=== PATIENT | male | born 1950 | race African-American/Black ===

== ENCOUNTER 2018-06-18 14:48 | Inpatient (IN) | payer OTHER ==
[2018-06-18] VITALS (18 sets, daily range): BP systolic 84–159; BP diastolic 17–80
[~2018-06-18] VITALS: Ht 175.3 cm; Wt 166.6 kg
[2018-06-18 15:51] LABS: BE(vivo) -4.1 mmol/L (-2 to +3); HCO3 18.3 mmol/L (22.0-26.0); PCO2 23.1 mmHg (35.0-45.0); PO2 131.6 mmHg (80.0-100.0); pH 7.516 (7.360-7.450)
[2018-06-18 15:53] LABS: MCH 28.5 pg (26.0-34.0); MCHC 31.9 g/dL (28.0-37.0); MCV 89.1 fL (80.0-100.0); RBC 2.09 mil/uL (4.50-6.00); RDW 15.5 % (10.5-14.5); WBC 11.8 thou/uL (4.0-11.0)
[2018-06-18 15:55] LABS: HEMATOCRIT 18.6 % (42.0-52.0); HEMOGLOBIN 5.9 gm/dL (14.0-18.0)
[2018-06-18 15:59] LABS: ANION GAP 14 mmol/L (7-16); BUN 64 mg/dL (7-18); CALCIUM 8.8 mg/dL (8.5-10.1); CHLORIDE 106 mmol/L (98-107); CO2 20 mmol/L (21-32); CREATININE 1.9 mg/dL (0.7-1.3); GLUCOSE 262 mg/dL (74-106); POTASSIUM 4.2 mmol/L (3.5-5.1); SODIUM 140 mmol/L (136-145)
[2018-06-18 16:05] LABS: APTT 30.4 Seconds (24.5-32.8); INR 1.1; PROTIME 11.8 Seconds (9.3-11.4)
[2018-06-18 16:07] LABS: TROPONIN-I <0.06 ng/mL (<0.06)
[2018-06-18] MEDS ORDERED: NAPROSYN500 MG PO (19:06)
[2018-06-18] MEDS ORDERED: SENNA8.6 MG PO (19:07)
[2018-06-18] MEDS ORDERED: LASIX 40 MG TAB40 M2 PO (19:07)
[2018-06-18] MEDS ORDERED: SPIRONOLACTONE25 M1 PO (19:07)
[2018-06-18] MEDS ORDERED: BISAC-EVAC10 MG RECTAL (19:07)
[2018-06-18] MEDS ORDERED: MIRALAX17 GM PO (19:07)
[2018-06-18] MEDS ORDERED: AMLODIPINE BESY10 MG PO (19:08)
[2018-06-18] MEDS ORDERED: UNICOMPLEX M TA1 TA1 PO (19:08)
[2018-06-18] MEDS ORDERED: TOPROL XL100 MG PO (19:08)
[2018-06-18] MEDS ORDERED: TYLENOL EXTRA500 MG PO (19:08)
[2018-06-18] MEDS ORDERED: LOSARTAN POTAS100 MG PO (19:09)
[2018-06-18 22:18] LABS: HEMATOCRIT 22.4 % (42.0-52.0); HEMOGLOBIN 7.4 gm/dL (14.0-18.0)
[2018-06-19] VITALS (42 sets, daily range): BP systolic 102–150; BP diastolic 27–82
[2018-06-19 02:24] LABS: URINE BILIRUBIN NEGATIVE (Negative); URINE BLOOD NEGATIVE (Negative); URINE CLARITY CLEAR; URINE COLOR YELLOW; URINE GLUCOSE-RANDOM* NEGATIVE (Negative); URINE KETONES NEGATIVE (Negative); URINE NITRITE-REFLEX NEGATIVE (Negative); URINE PROTEIN (DIPSTICK) NEGATIVE (Negative); URINE UROBILINOGEN 0.2 E.U./dl (0.2-1.0)
[2018-06-19 02:44] LABS: URINE LEUKOCYTES-REFLEX 1+ (Negative)
[2018-06-19 03:00] LABS: HEMATOCRIT 20.9 % (42.0-52.0); HEMOGLOBIN 6.9 gm/dL (14.0-18.0)
[2018-06-19 03:10] LABS: BACTERIA-REFLEX 1-9 Few /HPF (None Seen); CASTS None Seen /LPF (None Seen); CRYSTALS None Seen /LPF (None Seen); MUCUS None Seen strn/LPF (None Seen); SQUAMOUS 0-3 Few /LPF (0-3); URINE RBC 3-10 Few /HPF (0-2); URINE WBC-REFLEX 0-5 Rare /HPF (0-5)
--- NOTE | 2018-06-19 03:33 | NUR ---
0240: NOTIFIED DR. DOWNS OF PT HAVING X2 MOD-LARGE BLOODY BM'S, BLACK W/ CLOTS/JELLY APPEARING. CLARIFIED GI CONSULT - NO OFFICIAL ORDER, PT WAS SEEN IN ER BY GI PROFESSOR OF BIOLOGICAL SCIENCES AND DR. TOURE. ORDER RECEIVED FOR ROUTINE GI CONSULT SINCE PT WAS SEEN IN ER BY THEM LAST EVENING AND STAT H/H CHECK. 0325: NOTIFIED DR. DOWNS WITH H/H RESULTS, ORDER RECEIVED TO GIVE 1 UNIT RBC. CLARIFIED PROTONIX GTT W/ PHYSICIAN - ONE TIME ORDER ENTERED IN ER, AND ORDER TO START PROTONIX IV BID IN AM - NO CHANGES TO THIS ORDER. CONTINUE Q8H H/H'S.
--- NOTE | 2018-06-19 03:55 | NUR ---
ADMISSION NOTE 1900: RECEIVED REPORT FROM [facility]. 2004: PT ARRIVED TO ROOM 242, TRANSFERRED TO ICU BED PER ORANGE SLIDE SHEET WITHOUT COMPLICATIONS, CONNECTED TO MONITORS PER ICU STANDARDS. ST ON TELE HR 115-130'S, ON ROOM AIR, NO DISTRESS NOTED, PT IS A/O X4, ESCAMILLA/FOLLOW COMMANDS. SIGNIFICANT LYMPHEDEMA NOTED IN BILATERAL LOWER EXTREMITIES. BOWEL SOUNDS ACTIVE, NO BM NOTED - PT DID HAVE BLOODY STOOL IN ED. PT IS CURRENTLT STATUS POST 2 UNITS RBC INFUSED. PT VOIDED WITHOUT DIFFICULTY. VERY DRY/FLAKY SKIN NOTED BLE. PT HAD NUSRAT WRAP AROUND BLE W/ STOOL ON DRESSING, REMOVED, SOCKS REPLACED AND ELEVATED BLE ON PILLOWS. COMPLETE ASSESSMENT PER DOCUMENTATION. VSS. ALL ORDERS ACTIVATED AND POC EXPLAINED TO PT. PROTONIX GTT INFUSING RIGHT AC IV - IVF'S ORDERED AND STARTED. LEFT EJ LEAKING - REMOVED IV, TIP INTACT, PRESSURE HELD, NO ACTIVE BLEEDING NOTED.
--- NOTE | 2018-06-19 05:48 | NUR ---
ASSESSMENTS PER DOCUMENTATION, VSS, NO DISTRESS NOTED. PT HAD 3-4 BM'S FROM 2330 UNTIL 4AM, BLACK/MAROON IN COLOR W/ JELLY/CLOT CONSISTENCY. PT DENIES PAIN, IS ASYMPOMATIC, A/O X4. SOFT BP'S AT TIMES FRANDY DIASTOLIC. SERIAL H/H'S CONTINUE, 6AM DRAW ON HOLD D/T PRBC'S INFUSING. 1 UNIT OF BLOOD STARTED AT 0508 PER PROTOCOL, VITAL SIGNS REMAIN STABLE DURING START OF INFUSION, NO S/S REACTION NOTED. DR. DOWNS UPDATED THROUGHOUT THE NIGHT. NO DISTRESS NOTED, PT REMAINS ON ROOM AIR, RESPIRATIONS EVEN/UNLABORED. PT IS NPO THIS MORNING IN ANTICIPATION OF EGD W/ GI. PT VOIDED ADEQUATE AMOUNT OF URINE OVERNIGHT - 525ML, DARK YELLOW. SKIN DRY/INTACT. UA SENT TO LAB. PROTONIX GTT COMPLETED - WILL GIVE IVP THIS AM.
--- NOTE | 2018-06-19 08:15 | EKG ---
[address] [employer] [place] [address] ELECTROCARDIOGRAM REPORT Name: TANNER SHIELDS Room #: 242-P ADM IN M.R.#: [id number] ������������������ Admission: 06/18/18 ������������������ Attend Phys: Yasir Hernandez MD Discharge: ������������������ Date of : 48 Report #: [id number] ����������������������������������������������������������������� [id number] THIS REPORT FOR: //name// [facility] ED Test Date: 2018-06-18 Test Time: 15:05:25 Pat Name: TANNER SHIELDS Department: Room: 242 Gender: M Radio Personality: TYRONE : 1950 Requested By: Gabriel Lobo Order Number: [id number] MD: Mark Sheikh Measurements Intervals [place] Rate: 81 P: 58 DE: 139 QRS: 35 QRSD: 89 T: 88 QT: 387 QTc: 450 Interpretive Statements Sinus rhythm No significant abnormality No previous ECG available for comparison Electronically Signed On 06-19-2018 8:15:10 MANAGER BUDGET by Mark Sheikh [email or web address] ��������������������������������������������� <ELECTRONICALLY SIGNED> ���������������������������������������� By: Mark Sheikh MD, [facility] ��������������������������������������������� 06/19/18 0815 [id number] Mark Sheikh MD, FACC /EPI
[2018-06-19 09:12] LABS: HEMATOCRIT 23.6 % (42.0-52.0)
--- NOTE | 2018-06-19 16:45 | NUR ---
FAXED CLINICAL UPDATE TO CM SPOKE WITH CHARO AND SHE RECEIVED UPDATE AND WILL FOLLOW. DCP TO FOLLOW.
[2018-06-19 22:52] LABS: HEMATOCRIT 21.2 % (42.0-52.0); HEMOGLOBIN 7.2 gm/dL (14.0-18.0)
[2018-06-20] VITALS (34 sets, daily range): BP systolic 113–194; BP diastolic 47–85
--- NOTE | 2018-06-20 04:15 | NUR ---
PT HAD NO STOOL LAST NIGHT, NO S/S OF BLEEDING, PROTONIX DRIP COMPLETED LAST NIGHT, IV PUSH SCHEDULED THIS AM, LAST HGB LAST NIGHT 7.2, PT NPO PER ORDERS, BLOOD SUGAR IN NORMAL RANGE, IVF INFUSING, URINE OUTPUT ADEQUATE, VOIDING FREQUENTLY PER URINAL, X2 EPISODES OF STRESS URINE INCONTINENCE, SCD STARTED LAST NIGHT PER ORDERS. PT SLOWLY GAINING STRENGTH, HELPS WITH TURNS IN BED ABLE TO ESCAMILLA.
--- NOTE | 2018-06-20 10:42 | NUR ---
Case opened to follow for dc planning. Pt is a readmission from SNF at [facility]. Pt is currently in the ICU with a GIB. Likely dc out of the ICU today. Enrollment Management Coordinator visited with the pt at bedside and he is a&ox4. He is planning to return to rehab at [facility] when medically stable. He states that he was doing good with his rehab and getting ready to go home soon. Dc process planner to keep admissions at [facility] updated. They can accept him when medically stable. Will follow.
[2018-06-20 12:30] LABS: HEMATOCRIT 20.3 % (42.0-52.0); HEMOGLOBIN 6.9 gm/dL (14.0-18.0)
--- NOTE | 2018-06-20 17:53 | NUR ---
PT MET GOAL, INCREASED ACTIVITY THROUGHOUT DAY. UP IN THE CHAIR WITH PT [id number]. STAND BY ASSISTANCE X1 WITH WALKER. PT TOLERATED GETTING BACK BED. EXPRESSED CONCERNS REGARDING BLACK STOOL. PT STATED, "I'M WORRIED, IT MAKES ME NERVOUS" EDUCATED PT ON INCREASED DIET TO CLEAR LIQUIDS WILL CAUSE THE OLD STOOL TO MOVE THROUGH THE GI TRACK AND HE MAY SEE "OLD BLOOD" FOR SEVERAL DAYS. REVIEWED PT LABS AND VITAL SIGNS WITH HIM AND REASSURED PT THAT HE IS BEING CLOSELY MONITORED IN THE ICU.
[2018-06-21] VITALS (42 sets, daily range): BP systolic 78–178; BP diastolic 39–92
[2018-06-21 04:40] LABS: MCH 29.8 pg (26.0-34.0); RDW 15.9 % (10.5-14.5)
[2018-06-21 04:42] LABS: MCHC 33.5 g/dL (28.0-37.0); MCV 88.8 fL (80.0-100.0); RBC 2.16 mil/uL (4.50-6.00); WBC 9.5 thou/uL (4.0-11.0)
[2018-06-21 04:44] LABS: CALCIUM 8.7 mg/dL (8.5-10.1); CREATININE 1.1 mg/dL (0.7-1.3); POTASSIUM 3.8 mmol/L (3.5-5.1)
[2018-06-21 04:49] LABS: % SATURATION 75 % (20-39); IRON 191 ug/dL (65-175); TIBC 255 ug/dL (250-450)
[2018-06-21 05:02] LABS: HEMOGLOBIN 6.4 gm/dL (14.0-18.0)
[2018-06-21 05:03] LABS: HEMATOCRIT 19.2 % (42.0-52.0)
--- NOTE | 2018-06-21 07:56 | NUR ---
ASSUMED CARE OF PT AT 1900. PT ALERT AND ORIETED X4. NO SIGNS OF ACTIVELY BLEEDING NOTED. HGB THIS AM 6.4. ORDERS RECEIVED FOR TRANSFUSION PER DR DOWNS. SR ON THE MONITOR. TACHYCARDIC WITH ACTIVITY. GOOD UO.
--- NOTE | 2018-06-21 09:46 | NUR ---
Assess due to notification of high BMI 53.7=extreme class III obesity. Pt admitted due to GIB due to large duodenal ulcer. Has been npo/clear liquids x 3 days. Hgb dropped today and pt requires transfusion. GI following. ICU rounds-RN states pt drinking clear liquids with tolerance. Await for timely ability to advance diet. Low nutrition risk at this time
[2018-06-21 11:29] LABS: HEMATOCRIT 21.9 % (42.0-52.0); HEMOGLOBIN 7.4 gm/dL (14.0-18.0); MCHC 33.7 g/dL (28.0-37.0); RBC 2.46 mil/uL (4.50-6.00); RDW 15.6 % (10.5-14.5); WBC 10.1 thou/uL (4.0-11.0)
--- NOTE | 2018-06-21 17:18 | NUR ---
PT IS ALERT AND ORIENTED X4. LUNGS ARE CLEAR TO DIMINISHED. ON ROOM AIR. UP TO CHAIR TODAY. NSR ON THE BROKE BEATER MACHINE OPERATOR. O2 SATURATION IS 100 PERCENT. BOWEL SOUNDS POSITIVE. PASSING GAS . NO BOWEL MOVEMENT. VOIDS PER URINAL AND NEEDS ASSISTANCE. AND HAS DRIBBLING WITH VOIDS. BATH SPONGE GIVEN . EATING A FULL LIQUID DIET. CALL LIGHT WITHIN REACH IF NEEDS ASSISTANCE.
[2018-06-21 18:10] LABS: HEMATOCRIT 24.7 % (42.0-52.0); HEMOGLOBIN 8.4 gm/dL (14.0-18.0)
[2018-06-22] VITALS (25 sets, daily range): BP systolic 111–194; BP diastolic 51–79
--- NOTE | 2018-06-22 05:51 | NUR ---
ASSUMED CARE OF PT AT 1900. PT ALERT AND ORIENTED X4. DENIES ANY PAIN. PT ABLE TO ASSIST WITH TURNS. SR ON THE MONITOR. TACHYCARDIC WITH ACTIVITY. VSS. X1 MEDIUM BLACK TARRY STOOL. GOOD UO. SKIN INTACT. WILL CONTINUE TO MONITOR PT.
[2018-06-22 05:55] LABS: HEMATOCRIT 20.5 % (42.0-52.0)
[2018-06-22 06:05] LABS: CALCIUM 8.6 mg/dL (8.5-10.1); POTASSIUM 3.4 mmol/L (3.5-5.1)
[2018-06-22 10:48] LABS: HEMATOCRIT 21.9 % (42.0-52.0); HEMOGLOBIN 7.3 gm/dL (14.0-18.0)
--- NOTE | 2018-06-22 13:30 | NUR ---
CLINICAL INFO REVIEWED. WILL REMAIN IN ICU PER DR. DOWNS'S NOTE AND NO W/E DC PLANNED. PT WILL RETURN TO SKILLED REHAB AT [facility] WHEN MEDICALLY READY. UPDATE TO [place] IN ADMISSIONS AT [facility].
--- NOTE | 2018-06-22 19:15 | NUR ---
Pt alert and oriented throughout the shift. Sinus rhythm when at rest. Sinus tachycardia with exertion. Heart rate up to 140's when ambulating. Repeat hemoglobin 7.3 this morning. Next HH at 2200. Pt had one loose stool-blackish with maroon tint. No clots. Diet was advanced to regular today. Respirations nonlabored. Lungs clear. Voids per urinal in small amts (50-150 ml). Total urine output adequate at 635 ml. Pt has denied pain. Pt out of bed to chair with assist of PT. Pt able to shave himself today. Report given to RN assuming care. Order present for transfer out of ICU if bed is needed.
[2018-06-22 22:02] LABS: HEMOGLOBIN 7.8 gm/dL (14.0-18.0)
[2018-06-23] VITALS (17 sets, daily range): BP systolic 108–161; BP diastolic 50–87
[2018-06-23 05:24] LABS: CALCIUM 8.8 mg/dL (8.5-10.1); CREATININE 1.1 mg/dL (0.7-1.3); POTASSIUM 3.7 mmol/L (3.5-5.1)
--- NOTE | 2018-06-23 07:27 | NUR ---
ASSUMED CARE OF PT AT 1900. PT ALERT AND ORIENTED X4. DENIES ANY PAIN. ABLE TO AMBULATE TO CHAIR WITH X2 ASSISTANCE, GAIT BELT, AND WALKER. PT SR AT REST DOES BECOME TACHYCARDIC WITH ACTIVITY. X1 SMEAR OF BLACK TARRY STOOL. HGB AT 2200 7.8. VSS. REMAINS ON RA. PT MAKING PROGRESS TOWARDS PLAN OF CARE.
[2018-06-23 15:12] LABS: HEMATOCRIT 23.3 % (42.0-52.0); HEMOGLOBIN 7.8 gm/dL (14.0-18.0)
--- NOTE | 2018-06-23 15:47 | NUR ---
PT UP TO CHAIR FOR APPROX 5 HRS TODAY. INCONTINENT OF BLACK TARRY STOOL X1. NSR ON SSAS DEVELOPER. O2 SAT STABLE ON ROOM AIR. ORDER TO TRANSFER TO TELE. REPORT GIVEN TO LUCRETIA Montoya RN.
--- NOTE | 2018-06-23 17:13 | NUR ---
ADMITTED PATIENT TO UNIT AT THIS TIME. ORIENTED TO ROOM, BED CONTROLS AND TV. HE PREFERS TO SIT ON THE CHAIR. WILL CONT WITH PLAN OF CARE.
--- NOTE | 2018-06-24 00:42 | NUR ---
Pt report received, assumed care of pt at 7460 06/23/18.
--- NOTE | 2018-06-24 01:40 | NUR ---
ASSUMED CARE AT 1900, INITIAL ASSESSMENT COMPLETED. PT DENIES PAIN, NAUSEA, OR SOB. ASSISTED x2 TO GET UP FROM CHAIR AND MOVE TO BED. HAD MODERATE AMOUNT OF INCONTINENT THIN BLACK, TARRY STOOL; SENT A SPECIMEN FOR H. PYLORI TEST. HAS BEEN ST, HR LOW 100'S ON TELE. NO OTHER CONCERNS, TRANSFERRED CARE TO SECOND RN AT 2345, PT IN STABLE CONDITION.
[2018-06-24 05:10] VITALS: BP 147/81
[2018-06-24 06:24] LABS: HEMATOCRIT 21.3 % (42.0-52.0); HEMOGLOBIN 7.2 gm/dL (14.0-18.0)
--- NOTE | 2018-06-24 07:02 | NUR ---
Pt A/O x 4. VSS. SR. Denies pain or any other discomfort. Fall precautions maintained. Pt instructed to call for assistance. Call light within reach.
[2018-06-24 07:22] VITALS: BP 136/75
[2018-06-24 11:21] VITALS: BP 137/79
--- NOTE | 2018-06-24 15:35 | NUR ---
ASSUMED PATIENT CARE AT 0715. A&OX4. NO COMPLAINTS OF PAIN. MOST LIKELY DISCHARGE BACK TO REHAB TOMORROW. PATIENT WAS UP WALKING WITH A WALKER AT REHAB. BEFORE REHAB PATIENT WAS USING A CANE. PATIENT WAS ALSO GETTING LYMPHEDEMA WRAPS AT HOME AND FACILITY BUT HAS NOT BEEN GETTING THEM SINCE ADMISSION. BLE VERY LARGE. PATIENT WORKING TOWARD DISHCARGE GOALS.
[2018-06-24 16:36] VITALS: BP 128/79
[2018-06-24 19:07] VITALS: BP 159/73
--- NOTE | 2018-06-25 04:12 | NUR ---
PT MAKING PROGRESS TOWARDS GOALS. NO REPORTED BLEEDING OVERNIGHT, NO BM OVERNIGHT. DENIES SOA OR ANY COMPLAINTS. CONTINUE TO MONITOR.
[2018-06-25 04:48] VITALS: BP 141/69
[2018-06-25 05:21] LABS: HEMATOCRIT 21.5 % (42.0-52.0); HEMOGLOBIN 7.1 gm/dL (14.0-18.0)
[2018-06-25 05:33] LABS: CALCIUM 8.6 mg/dL (8.5-10.1); CREATININE 1.1 mg/dL (0.7-1.3); POTASSIUM 3.5 mmol/L (3.5-5.1)
[2018-06-25 07:32] VITALS: BP 140/76
[2018-06-25 11:24] VITALS: BP 149/66
--- NOTE | 2018-06-25 11:24 | NUR ---
dp sent updates on patient to [facility] Deidra, dp also left Anand/admissions dept at [facility] a messsage letting her know updates were sent. Patient may possibly be ready for dc today, however there are no orders in yet. Patient will need bariatric wc van for transportation, no oxygen. DP to follow up.
--- NOTE | 2018-06-25 14:17 | NUR ---
ASSUMED PATIENT CARE AT 0715. A&OX4. NO COMPLAINTS OF PAIN. NEEDS HELP REPOSITIONING IN THE BED TODAY. PATIENT UNABLE TO STAND WITH THERAPY DUE TO RIGHT KNEE PAIN. PATIENT WAS ABLE TO GET TO CHAIR YESTERDAY. PATIENT HAD A LARGE BLACK STOOL YESTERDAY. HGB 7.1 TODAY. GI ORDERED A ONE TIME DOSE OF MAG CITRATE, NPO AT 0000, AND HGB TOMORROW. GI MAY SCOPE AGAIN TOMORROW, SEE GI NOTE. PATIENT AGREEABLE WITH POC. WORKING TOWARDS GOALS.
--- NOTE | 2018-06-25 14:52 | NUR ---
SW reviewed chart and spoke with nursing. Pt was transferred to from ICU. Pt remains on Protonix IV BID. Per GI, will continue to monitor hemoglobin. Pt may need to have an EGD. land planner faxed clinical updates to [facility] for review. Plan is for pt to return to [facility] when medically stable. [facility] is following to assist as needed with discharge planning.
[2018-06-25 15:08] VITALS: BP 132/65
[2018-06-25 19:45] VITALS: BP 155/76
[2018-06-26 04:00] VITALS: BP 134/75
--- NOTE | 2018-06-26 05:11 | NUR ---
3 large BM since mag citrate given by previous shift. used bedpan, did have episode of incontinence. first stool 1/2 black, 1/2 brown. next two BM were brown, no obvious blood noted in stool. using urinal to void, adequate amount. bilateral lymphedema wraps ordered, not performed yet. wound care notified. denied pain in right knee.
[2018-06-26 06:04] LABS: HEMOGLOBIN 7.2 gm/dL (14.0-18.0)
[2018-06-26 07:39] VITALS: BP 136/75
[2018-06-26 11:48] VITALS: BP 173/91
--- NOTE | 2018-06-26 11:56 | NUR ---
ASSUMED PATIENT CARE AT 0715. A&OX4. COMPLAINTS OF RIGHT KNEE PAIN. P.T. ASKED IF PATIENT COULD HAVE WEDGES ON THE OUTSIDE OF LEGS WHILE IN BED TO HELP KEEP KNEES FROM TURNING OUTWARDS. HGB THIS AM 7.2. BOWEL MOVEMENTS HAVE BEEN BROWN IN COLOR. PATIENT HAVING MULTIPLE BOWEL MOVEMENTS OVERNIGHT AND TODAY. PATIENT UNABLE TO STAND WITH THERAPY. PHYSICAL THERAPY INSTRUCTED THE PATIENT ON HOW IMPORTANT IT IS TO GET OUT OF BED AND MOVE. PATIENT STILL REFUSED TO STAND. BATH GIVEN BY O.T. LYMPHEDEMA WRAPS STARTED TODAY. HOPEFULLY WRAPS HELP WITH LEG AND KNEE PAIN. POSSIBLE DC BACK TO REHAB. ABLE TO MAKE NEEDS KNOWN.
--- NOTE | 2018-06-26 14:41 | NUR ---
SW reviewed chart and spoke with nursing and attending physician. Pt is progressing towards goals for discharge. Hgb is stable. Pt's IV protonix has been changed to PO starting this evening. SW updated admissions at [facility]. Plan is for pt to d/c back to [facility] when medically stable. SW is following to assist as needed with discharge planning.
[2018-06-26 15:28] VITALS: BP 145/72
[2018-06-26 19:58] VITALS: BP 156/67
[2018-06-26 20:15] VITALS: BP 114/54
[2018-06-27 04:33] VITALS: BP 137/68
--- NOTE | 2018-06-27 05:43 | NUR ---
PT MAKING PROGRESS TOWARDS GOALS. NO REPORTS OF BM OVERNIGHT. ONLY C/O MINIMAL RIGHT KNEE PAIN. ENCOURAGED TO ASK FOR PAIN MEDICATION FOR HIS RIGHT KNEE APPROXIMATELY AN HOUR PRIOR TO WORKING WITH PHYSICAL THERAPY.
[2018-06-27 07:25] VITALS: BP 143/76
[2018-06-27] MEDS ORDERED: CLARITHROMYCIN250 M2 PO (10:07)
[2018-06-27] MEDS ORDERED: AMOXICILLIN 50500 M1 PO (10:07)
[2018-06-27] MEDS ORDERED: CIPRO500 MG PO (10:08)
[2018-06-27] MEDS ORDERED: ACETAMINOPHEN-1 EAC1 PO (10:10)
[2018-06-27] MEDS ORDERED: PANTOPRAZOLE SO40 M1 PO (10:10)
[2018-06-27 10:12] LABS: HEMATOCRIT 21.4 % (42.0-52.0); HEMOGLOBIN 7.5 gm/dL (14.0-18.0); MCH 30.5 pg (26.0-34.0); MCV 87.1 fL (80.0-100.0); RBC 2.46 mil/uL (4.50-6.00); RDW 15.8 % (10.5-14.5); WBC 9.8 thou/uL (4.0-11.0)
[2018-06-27] MEDS ORDERED: METOPROLOL SUCC50 MG PO (10:13)
[2018-06-27 11:57] VITALS: BP 119/65
--- NOTE | 2018-06-27 12:28 | NUR ---
DISCHARGE NOTE: SW notified by nursing that pt has discharge orders to return to [facility] today. SW met with pt at bedside to notify of discharge. Pt is aware and agreeable with discharge plan. Pt will need stretcher van transportation. Chart copy requested. event planner to fax discharge orders/summary and arrange transportation. SW is available to assist should needs arise.
--- NOTE | 2018-06-27 14:39 | NUR ---
PT. DISCHARGING TODAY BACK TO [facility]. FAXED DC ORDERS/SUMMARY TO FACILITY SPOKE WITH CHARO IN ADM. SHE RECEIVED DC ORDERS AND ARRANGED TRANSPORTATION VIA STRETCHER VAN FOR 1700 TODAY. LEFT MSG WITH FAMILY (OLE) OF DISCHARGE AND TIME OF TRANSPORT. UNIT NOTIFIED AND CHART COPY PER US. RN TO CALL REPORT TO [phone].
--- NOTE | 2018-06-27 14:48 | NUR ---
Assumed care of patient at 0700. Vitals have been stable. Patient alert and oriented x4, pleasant. Only complaints of pain are to right knee. Pain is very minimal; mainly with activity. Pre-medicated with Tylenol #3 before working with therapy. Patient was able to work with both PT and OT this afternoon. Able to stand at edge of bed, but therapy reports was max assist of 2 people to stand with walker. Is not much able to take steps. Fall precautions in place. Voiding per urinal. Bilateral lymphedema wraps to legs. No BM this shift. No signs of bleeding. Discharge orders received. To DC back to [facility] this evening via stretcher van. Will continue to monitor until discharge.
== END 2018-06-27 18:18 | DRG 378 ==
LOC: ER 14:48 → EROBS 16:43 → ICU 16:43 → 3W 06-23 17:08
PROVIDERS: Emergency Medicine; Internal Medicine; Internal Medicine Gastroenterology; Nurse Practitioner; Specialist; ADMIT Internal Medicine
PROC: 30233N1 Transfusion of Nonautologous Red Blood Cells into Peripheral Vein, Percutaneous Approach (ICD-10-PCS; principal; 2018-06-18)
PROC: 0W3P8ZZ Control Bleeding in Gastrointestinal Tract, Via Natural or Artificial Opening Endoscopic (ICD-10-PCS; 2018-06-19)
DX: K26.4 Chronic or unspecified duodenal ulcer with hemorrhage (principal); D62 Acute posthemorrhagic anemia; N17.9 Acute kidney failure, unspecified; R57.9 Shock, unspecified; N39.0 Urinary tract infection, site not specified; Z68.43 Body mass index [BMI] 50.0-59.9, adult; E78.5 Hyperlipidemia, unspecified; M10.9 Gout, unspecified; M17.0 Bilateral primary osteoarthritis of knee; I89.0 Lymphedema, not elsewhere classified; E66.01 Morbid (severe) obesity due to excess calories; E87.6 Hypokalemia; K59.00 Constipation, unspecified; B96.89 Other specified bacterial agents as the cause of diseases classified elsewhere; B96.81 Helicobacter pylori [H. pylori] as the cause of diseases classified elsewhere; I10 Essential (primary) hypertension; Z28.21 Immunization not carried out because of patient refusal; Z79.1 Long term (current) use of non-steroidal anti-inflammatories (NSAID); Z79.899 Other long term (current) drug therapy; Z88.5 Allergy status to narcotic agent; Z88.8 Allergy status to other drugs, medicaments and biological substances
CPT/HCPCS: 10078; 10879; 62110; 62900; 70005

== ENCOUNTER → 2018-09-03 | Outpatient (CLI) | payer OTHER ==
[~2018-09-03] VITALS: Ht 175.3 cm; Wt 158.8 kg
[~2018-09-03] MED LIST: ACETAMINOPHEN-1 EAC1 PO; ALLOPURINOL 10100 M1 PO; AMLODIPINE BESY10 MG PO; AMOXICILLIN 50500 M1 PO; BISAC-EVAC10 MG RECTAL; BISCOLAX10 MG RECTAL; CIPRO500 MG PO; CLARITHROMYCIN250 M2 PO; COLCHICINE0.6 MG PO; LASIX 40 MG TAB40 M2 PO; LOPRESSOR50 PO; LOSARTAN POTAS100 MG PO; METOPROLOL SUCC50 MG PO; MIRALAX17 GM PO; NAPROSYN500 MG PO; PANTOPRAZOLE SO40 M1 PO; PROTONIX40 M1 PO; SENNA8.6 MG PO; SPIRONOLACTONE25 M1 PO; TOPROL XL100 MG PO; TYLENOL EXTRA500 MG PO; UNICOMPLEX M TA1 TA1 PO
--- NOTE | 2018-09-04 15:06 | PATH ---
[facility] [address] [place] [address] PATHOLOGY RPT PROCEDURE Name: TANNER BRASWELL Room #: REG NICOLE Aburto.#: [id number] ������������������ Admission: 09/03/18 ������������������ Date of : 48 Discharge: Report #: [id number] Path Case #: [id number] [facility] Accession Number: [id number] . 01 Material submitted: . gastrointestinal site - GASTRIC BX R/O H. PYLORI . 01 Clinical history: . Screening Gastritis Rule H. pylori . 02 Diagnosis: Gastric mucosa, gastric R/O H. pylori, endoscopic biopsy: - Mild chronic active gastritis with features of reactive gastropathy. - Negative for intestinal metaplasia or atrophy. - Negative for Helicobacter pylori (properly controlled immunohistochemical stain performed). . (IUV:gina; 09/04/2018) QMS/09/04/2018 . 02 Electronically signed: . Pam Prather MD, Pathologist NPI- [id number] . 01 Gross description: . The specimen is received in formalin, labeled "Tanner Braswell Jr, gastric BX" and consists of 6 fragments of pink-angel tissue measuring 1.6 x 0.7 x 0.2 cm in aggregate which are entirely submitted in A1. (SDY; 09/03/2018) /SYU . 02 Pathologist provided ICD-10: K31.9, K29.50 . 02 CPT . 405050, X30469 Specimen Comment: A courtesy copy of this report has been sent to Specimen Comment: [phone], . Specimen Comment: Report sent to / DR DOWNS Performed at: [address] [id number] MD Tanner Greenfield MD Phone: [phone] Performed at: [address] [id number] [address] [address] PATHOLOGY RPT PROCEDURE Name: TANNER BRASWELL JR Room #: REG NICOLE Pérez#: [id number] ������������������ Admission: 09/03/18 ������������������ Date of : 48 Discharge: Report #: [id number] Path Case #: [id number] MD Pam Prather MD Phone: [phone]
== END | disposition home or self-care (01) ==
LOC: GI 09:18
DX: K29.50 Unspecified chronic gastritis without bleeding (principal); K31.9 Disease of stomach and duodenum, unspecified; I10 Essential (primary) hypertension; D64.9 Anemia, unspecified; E66.09 Other obesity due to excess calories; M10.9 Gout, unspecified; Z79.899 Other long term (current) drug therapy; Z98.890 Other specified postprocedural states; Z68.43 Body mass index [BMI] 50.0-59.9, adult
CPT/HCPCS: 62110; 62900